=== PATIENT | female | born 1980 | race Caucasian/White ===

== ENCOUNTER → 2024-01-31 | Outpatient (CLI) | payer BC ==
[~2024-01-31] MED LIST: LOVENOX 3030 MG/0.3; MOTRIN 600600 MG/TAB PO; PERCOCET 325 MG1 TA2 PO; PRENATAL1 TA1
== END ==
LOC: MC.RAD 08:52
DX: Z12.31 Encounter for screening mammogram for malignant neoplasm of breast (principal)